=== PATIENT | female | born 1990 | race Hispanic/Latino ===

== ENCOUNTER 2019-02-05 16:04 | Emergency (ER) | payer OTHER, SELFPAY ==
[2019-02-05] MEDS ORDERED: predniSONE 20 MG TAB ONE (16:39)
[2019-02-05] MEDS ORDERED: predniSONE 10 MG TAB ONE (16:39)
== END 2019-02-05 16:58 | disposition home or self-care (01) ==
LOC: SCSER 16:04
DX: L25.9 Unspecified contact dermatitis, unspecified cause (principal)
CPT/HCPCS: 99282; J7512

== ENCOUNTER 2020-01-02 08:07 | Emergency (ER) | payer OTHER, SELFPAY | END 2020-01-02 09:59 | disposition home or self-care (01) | LOC: ERS 08:07 | DX: J02.9 Acute pharyngitis, unspecified (principal); R05 Cough; R06.02 Shortness of breath; Z20.828 Contact with and (suspected) exposure to other viral communicable diseases | CPT/HCPCS: 87635; 99283; U0003 ==

== ENCOUNTER 2021-11-23 14:22 | Emergency (ER) | payer OTHER, SELFPAY | END 2021-11-23 16:04 | disposition home or self-care (01) | LOC: ERS 14:22 | DX: M25.572 Pain in left ankle and joints of left foot (principal); X50.1XXA Overexertion from prolonged static or awkward postures, initial encounter ==